=== PATIENT | male | born 1950 | race Asian ===

== ENCOUNTER 2025-05-21 04:12 | Emergency (ER) | payer OTHER ==
[~2025-05-21] VITALS: Ht 170.2 cm; Wt 72.7 kg
[2025-05-21 05:55] LABS: PLATELET COUNT (AUTO) 129 K/uL (150-450); RED BLOOD CELL COUNT(AUTO) 4.13 MIL/uL (4.50-5.90); RED CELL DISTRIBUTION WIDTH 14.3 % (11.5-14.5); WHITE BLOOD COUNT (AUTO) 4.6 K/uL (4.5-11.0)
[2025-05-21 05:58] LABS: CALCIUM, TOTAL 8.2 mg/dL (8.8-10.5); CREATININE 0.57 mg/dL (0.60-1.30); GLOMERULAR FILTR. RATE CALC > 60 mL/min (>60); GLUCOSE,RANDOM 112 mg/dL (70-110); SODIUM SERUM 139 mmol/L (136-145); UREA NITROGEN, BLOOD 9 mg/dL (7-18)
[2025-05-21] MEDS: PHENYLEPHRINE HCL 1% 15 ML NASAL SPRAY NASAL ONE (06:15)
[2025-05-21 07:11] VITALS: BP 145/67; PULSE 79; RESP 18; TEMP 98.1; O2SAT 98
== END 2025-05-21 07:15 | disposition home or self-care (01) ==
LOC: EMS 04:12 → EDSEX 04:12 → EMS 07:15
DX: R04.0 Epistaxis (principal); I10 Essential (primary) hypertension; Z87.891 Personal history of nicotine dependence
CPT/HCPCS: 80048; 85025; 85610; 99283